=== PATIENT | male | born 1995 | race Two or more races ===

== ENCOUNTER 2019-07-25 06:47 | Emergency (ER) | payer OTHER, SELFPAY ==
--- NOTE | ~2019-07-25 | XR_ITS ---
EXAMINATION: XR chest 1V portable INDICATION: Chest pain and fever TECHNIQUE: Portable AP chest at 0735 hours COMPARISON: None available FINDINGS: There are patchy airspace opacities in the medial aspect of the right lung base. There is n o pleural effusion or pneumothorax. The cardiomediastinal silhouette is normal. The visualized osseou s structures are unremarkable. IMPRESSION: 1. Right basilar airspace opacities, likely pneumonia. Reviewed, dictated and finalized at location A.
--- NOTE | 2019-07-25 07:01 | ECG_ITS ---
Measurements Intervals [place] Rate: 108 P: 28 IA: 178 QRS: 105 QRSD: 103 T: 68 QT: 330 QTc: 443 Interpretive Statements SINUS TACHYCARDIA POSSIBLE LEFT ATRIAL ENLARGEMENT RIGHT AXIS DEVIATION INCOMPLETE RIGHT BUNDLE BRANCH BLOCK BASELINE ARTIFACT- I, III, AVL ABNORMAL ECG Electronically Signed On 07-25-2019 9:14:51 CDT by Emile Astorga D.O.
[2019-07-25 07:02] VITALS: BP 145/86; PULSE 108; RESP 18; TEMP 37.1; O2SAT 100
--- NOTE | 2019-07-25 07:04 | ED.CHESTPAIN ---
HPI - Chest Pain General Chief Complaint: Chest Pain Stated Complaint: R side chest tightness Time Seen by Provider: 07/25/19 07:01 Source: patient Mode of arrival: EMS Limitations: no limitations History of Present Illness HPI narrative: A 24 y/o male pt presents to the ED, via EMS, with c/o midsternal chest pressure, SOB, nausea, weakness to his extremities, and a subjective fever that began this morning. Pt states that he has been self-quarantining at home, but notes that he went out for the first time this week to get his finger prints taken for a new job. EMS reports a measured temperature of 101.6F and 101.8F en route to the ED. Pt's temperature is 98.7 in the ED. Pt reports having a sore throat, shaking, and chills, but denies having a cough or vomiting. He notes having ABD pain and diarrhea, but states this is chronic. Pt reports taking THC pills at 445AM, but states he has been taking the same kind of THC for the past few weeks. complaint: chest pain (pressure) Onset (ago): hour(s) Pain location: other (midsternal) Associated symptoms: nausea, dyspnea, fever (subjective at home, EMS measured 101.6F and 101.8F, 98.7F in the ED) and other (weakness to extremities, sore throat, shaking, chills) Related Data Allergies Allergy/AdvReac Type Severity Reaction Status Date / Time No Known Allergies Allergy Verified 07/25/19 07:07 Review of Systems Review of Systems: All systems reviewed & are unremarkable except as noted in HPI and below Constitutional: Constitutional: Reports chills, Reports fever(s) (subjective at home, EMS measured 101.6F and 101.8F, 98.7F in the ED), Reports weakness (to extremities) and Reports other (shaking) ENT: Reports sore throat Cardiovascular: Cardiovascular: Reports chest pain (midsternal, pressure) and Reports dyspnea Respiratory: Respiratory: Denies cough Gastrointestinal: Gastrointestinal: Reports abdominal pain (chronic), Reports diarrhea (chronic), Reports nausea and Denies vomiting PMF Past Medical History Medical History (Updated 07/25/19 @ 08:44 by Pat Gilbert MD) Anxiety Surgical History Surgical History (Updated 07/25/19 @ 07:52 by BRIGITTE Adam) [place] teeth extracted Social History Social History (Updated 07/25/19 @ 08:34 by Pat Gilbert MD) Substance use type: marijuana Exam Const: General: cooperative, no acute distress and alert Nutritional Appearance: well nourished Orientation/consciousness: patient oriented x3 Limitations: no limitations HENMT: Mouth: Yes lip normal and Yes moist mucous membranes Resp: Effort & Inspection: normal respiratory effort Auscultation: clear to auscultation bilaterally Cardio: Rate: tachycardic Rhythm: regular rhythm GI: GI Palp: Yes Soft to palpation and No Tenderness to palpation present (GI) Auscultation: normal bowel sounds Skin: General skin exam: normal color Neuro: General: patient oriented x3 Cognition (Neuro): normal cognition Speech: normal speech Extrem: General: normal to inspection, full ROM and no clubbing, cyanosis or edema Psych: Mental Status: mental status grossly normal Affect: normal affect Attitude: cooperative Course Course Emergency Course: Patient with findings consistent with pneumonia on chest x-ray. Patient afebrile in the emergency department, but was febrile with EMS. Patient advised could be simple community-acquired pneumonia, versus viral pneumonia such as normal coronavirus infection. Patient does not meet health department criteria to be tested. Will be placed on Zithromax and discharged home. Patient is normal in appearance with no respiratory difficulty noted whatsoever. Patient counseled to return to the ED if he has severe respiratory distress and to notify staff he is coming and has potential to have coronavirus. Patient counseled on importance of strict quarantine at home and given discharge handout appropriate. Advised to contact his primary c
[2019-07-25 07:23] LABS: Basophils Absolute Auto 0.1 K/mm3 (0.0-0.1); Eosinophils Absolute Auto 0.1 K/mm3 (0-0.3); Eosinophils Percent Auto 1.4 % (0-4.4); Hematocrit 44.6 % (42.0-52.0); Hemoglobin 14.9 g/dL (14.0-18.0); Immature Granulocyte Absolute 0.01 K/mm3 (0.00-0.031); Immature Granulocyte Percent A 0.2 % (0-0.5); Lymphocytes Absolute Auto 2.18 K/mm3 (0.9-3.2); Mean Corpuscular HGB Conc 33.4 g/dl (32-36); Mean Corpuscular Hemoglobin 28.7 pg (26-34); Mean Corpuscular Volume 85.9 fl (80-100); Mean Platelet Volume 10.6 fl (7.4-10.4); Monocytes Absolute Auto 0.4 K/mm3 (0.1-0.6); Monocytes Percent Auto 8.3 % (2.6-8.5); Neutrophils Absolute Auto 2.2 K/mm3 (1.3-6.7); Neutrophils Percent Auto 45.1 % (45.5-73.1); Platelet Count Result 217 k/mm3 (150-375); Red Blood Count 5.19 M/mm3 (4.6-6.20); Red Cell Distribution Width 12.5 % (11.5-14.5)
[2019-07-25] MEDS: ASPIRIN 81 MG CHEWABLE TABLET 324 MG PO (07:30)
[2019-07-25 07:37] LABS: Partial Thromboplastin Time 28.1 SECONDS (22.3-36.8)
[2019-07-25 07:40] LABS: Blood Urea Nitrogen 12 mg/dL (9-20); Carbon Dioxide 26 mmol/L (22-30); Chloride 104 mmol/L (98-107); Estimated CRCL calculation 140 ml/min; Estimated Glomerular Filt Rate > 60; Glucose 105 mg/dL (75-110); Potassium 3.5 mmol/L (3.4-5.0); Sodium 138 mmol/L (137-145)
[2019-07-25 07:52] LABS: Troponin I < 0.012 ng/mL (0.000-0.034)
--- NOTE | 2019-07-25 08:08 | PC.NURSE ---
Called lab to add on Hepatic.
[2019-07-25 08:10] VITALS: BP 131/85; PULSE 92; RESP 16; O2SAT 100
[2019-07-25 08:16] LABS: Alanine Aminotransferase 16 U/L (4-50); Albumin Level 4.5 g/dL (3.5-5.1); Alkaline Phosphatase 60 U/L (38-126); Aspartate Amino Transferase 23 U/L (17-59); Bilirubin,Total 0.4 mg/dL (0.2-1.3)
[2019-07-25 08:16] LABS: Add Urine Microscopic? NO; Appearance Urine Clear (Clear); Bilirubin Urine Negative (Negative); Blood Urine Negative (Negative); Color Urine Yellow (Yellow); Glucose Urine UA Negative (Negative); Ketones Urine Negative (Negative); Leukocyte Esterase Ur Negative LEU/UL (Negative); Nitrate Urine Negative (Negative); Protein Urine Negative (Negative); Specific Grav Ur 1.019 (1.001-1.035); Urobilinogen Urine Negative mg/dL (<2.0)
[2019-07-25 09:03] VITALS: BP 130/82; PULSE 91; RESP 22; O2SAT 100
== END 2019-07-25 09:06 | disposition home or self-care (01) ==
PROVIDERS: Emergency Provider Emergency Medicine; PCP Family Medicine
DX: J18.1 Lobar pneumonia, unspecified organism (principal)
CPT/HCPCS: 36415; 71045; 80048; 80076; 81003; 84484; 85025; 85610; 85730; 87081; 87804; 87880; 93005; 99284; A9270

== ENCOUNTER 2019-10-17 11:05 | Outpatient (CLI) | payer OTHER, SELFPAY ==
--- NOTE | ~2019-10-17 | XR_ITS ---
XR chest 2V DATE: 10/17/2019 11:27 INDICATION: Pneumonia follow-up TECHNIQUE: PA and lateral views COMPARISON: 07/25/2019 portable upright AP chest FINDINGS: Normal heart size. No hilar or mediastinal enlargement. No pulmonary infiltrate or consolid ation, pleural effusion or pulmonary vascular congestion or pneumothorax. IMPRESSION: No active cardiopulmonary disease Reviewed, dictated and finalized at location A.
== END 2019-10-17 11:06 | disposition home or self-care (01) ==
LOC: ANHIMG 11:12
PROVIDERS: PCP Family Medicine; Visit Provider Family Medicine
DX: J18.9 Pneumonia, unspecified organism (principal)
CPT/HCPCS: 71046